=== PATIENT | male | born 1990 | race Caucasian/White ===

== ENCOUNTER 2018-06-03 11:00 | Emergency (ER) | payer SELFPAY ==
[~2018-06-03] VITALS: Ht 182.9 cm; Wt 70.0 kg
[~2018-06-03 11:00] MED LIST: NO HOME MEDS; RANI-366 PO
[2018-06-03 11:29] VITALS: BP 120/73
[2018-06-03 12:00] LABS: BASOPHILS % (AUTO) 0.7 % (0-1); EOSINOPHILS # (AUTO) 0.1 X10'3 (0-0.9); EOSINOPHILS % (AUTO) 1.1 % (0-6); HEMATOCRIT 47.2 % (42.0-52.0); HEMOGLOBIN 16.1 g/dl (14.0-17.9); LYMPHOCYTES # (AUTO) 2.6 X10'3 (1.1-4.8); LYMPHOCYTES % (AUTO) 38.7 % (21-51); MEAN CORPUSCULAR HEMOGLOBIN 31.9 PG (27.0-31.0); MEAN CORPUSCULAR HGB CONC 34.1 % (33.0-36.5); MEAN CORPUSCULAR VOLUME 93.6 FL (78-98); MEAN PLATELET VOLUME 7.8 FL (7.4-10.4); MONOCYTES # (AUTO) 1.1 X10'3 (0-0.9); MONOCYTES % (AUTO) 16.9 % (2-12); NEUTROPHILS # (AUTO) 2.9 X10'3 (1.8-7.7); NEUTROPHILS % (AUTO) 42.6 % (42-75); PLATELET COUNT 260 X10'3 (140-440); RED BLOOD COUNT 5.04 X10'6 (4.70-6.10); WHITE BLOOD COUNT 6.7 X10'3 (4.5-11.0)
[2018-06-03 12:12] LABS: ALANINE AMINOTRANSFERASE 22 U/L (12-78); ALBUMIN 4.1 G/DL (3.4-5.0); ALBUMIN/GLOBULIN RATIO 1.1 (1.1-1.5); ALKALINE PHOSPHATASE 103 IU/L (46-116); ANION GAP 9 (8-16); ASPARTATE AMINO TRANSFERASE 18 U/L (10-37); BILIRUBIN,TOTAL 1.1 MG/DL (0.1-1.0); BLOOD UREA NITROGEN 18 MG/DL (7-18); BUN/CREATININE RATIO 21.7 (5.4-32.0); CALCIUM 8.7 MG/DL (8.5-10.1); CHLORIDE 100 MMOL/L (99-107); CREATININE 0.83 MG/DL (0.60-1.10); GLUCOSE 92 MG/DL (70-104); LIPASE 71 U/L (73-393); POTASSIUM 3.9 MMOL/L (3.5-5.1); SODIUM 139 MMOL/L (135-145); TOTAL CARBON DIOXIDE 30.4 MMOL/L (24-32); TOTAL PROTEIN 7.7 G/DL (6.4-8.2); eGFR > 90 ML/MIN
== END 2018-06-03 13:30 | disposition home or self-care (01) ==
LOC: ER 11:01
DX: R11.2 Nausea with vomiting, unspecified (principal); R19.7 Diarrhea, unspecified; R42 Dizziness and giddiness; R53.83 Other fatigue; G89.29 Other chronic pain; F17.200 Nicotine dependence, unspecified, uncomplicated; F12.90 Cannabis use, unspecified, uncomplicated; Z88.0 Allergy status to penicillin; Z79.899 Other long term (current) drug therapy
CPT/HCPCS: 36415; 80053; 83690; 85025; 99283

== ENCOUNTER 2019-06-15 14:44 | Emergency (ER) | payer MEDICAID, OTHER ==
[~2019-06-15] VITALS: Ht 185.4 cm; Wt 80.0 kg
[2019-06-15 15:11] VITALS: BP 121/81
[2019-06-15] MEDS ORDERED: ONDA4TAB6 PO (15:14)
== END 2019-06-15 15:20 | disposition home or self-care (01) ==
LOC: ER 14:47
DX: R11.2 Nausea with vomiting, unspecified (principal); R51 Headache; R19.7 Diarrhea, unspecified; G89.29 Other chronic pain; F17.200 Nicotine dependence, unspecified, uncomplicated; F10.99 Alcohol use, unspecified with unspecified alcohol-induced disorder; F12.90 Cannabis use, unspecified, uncomplicated; Z88.0 Allergy status to penicillin; Z79.899 Other long term (current) drug therapy; Y90.9 Presence of alcohol in blood, level not specified
CPT/HCPCS: 99283

== ENCOUNTER 2025-02-03 09:19 | Emergency (ER) | payer MEDICAID, OTHER ==
[~2025-02-03] VITALS: Ht 182.9 cm; Wt 76.2 kg
[~2025-02-03 09:19] MED LIST changes: +ONDA4TAB6 PO
[2025-02-03 09:22] VITALS: TEMP 98.4
[2025-02-03 10:05] VITALS: BP 124/77; PULSE 67; RESP 15; O2SAT 98
[2025-02-03] MEDS: triamcinolone acetonide 40mg/ml inj IM ONE (10:23)
--- NOTE | 2025-02-03 10:23 | Physician Documentation ---
History of Present Illness ~ Chief Complaint: Allergic Reaction Stated Complaint: RASH Time Seen by MD: 10:11 Primary Medical Doctor: none HPI 34-year-old male presents with a complaint of an allergic reaction of an unknown source. He states that it initially there his eyes began swell 2 days ago and were itchy. Then developed increased tissue swelling along with developing a rash on both sides of his cheeks Denies any shortness of breath or throat swelling symptoms Day of Onset: Feb 03, 2025 Medication Reconciliation Allergies: Coded Allergies: Penicillins (Unverified Allergy, Severe, anaphylaxis, 02/03/25) Scheduled Ondansetron Hcl (Zofran), 1 TAB PO Q8H Ranitidine Hcl (Zantac), 150 MG PO DAILY Miscellaneous Medications Home Med List (No Home Medications), (Reported) Past Medical History Past Medical History: Angina, Chronic Back Pain Past Surgical History: no surgical history Alcohol Use: Occasionally Drug Use: marijuana Lives with: Family, Other Lives In: Home Occupation: employed Review of Systems All Other Systems at this time: Reviewed and Negative ROS As stated above in the HPI, otherwise all systems are reviewed and negative. Physical Exam Vital Signs: Temperature: 98.4, Source: Temporal, Heart Rate: 67, Respiratory Rate: 15, BP: 124/77, Pulse Oximetry: 98, Weight: 76.200 Oxygen Flow Rate: 0 Physical Exam General: Alert, no apparent distress. HEENT: PERRL, EOMI, no injection, moist mucous membranes. BL eye lid -swelling, rash both cheeks Respiratory: Lungs clear, no respiratory distress. Progress Results/Orders Results/Orders Completed Orders - LIOR DUNNE NP Triamcinolone Acet 40mg/Ml Inj (Kenalog- (02/03/25 10:20) Vital Signs 02/03/25 02/03/25 09:22 10:05 Temp 98.4 Pulse 74 67 Resp 18 15 B/P (MAP) 131/88 124/77 (93) Pulse Ox 99 98 O2 Flow Rate 0 Medical Decision Making Findings Treating this patient for an allergic reaction to an unknown substance. There was no acute distress treated him with Kenalog in the ED and told him to use Benadryl for itching at home. Differential Dx:Considerations: Include: Anaphylaxis, Angioedema, Bronchospasm, Contact dermatitis, Drug reaction, Hypotension, Latex allergy, Renal failure, Respiratory failure, Shock, Urticaria, Other Departure Disposition: 01 HOME / SELF CARE / HOMELESS Impression: Primary Impression: Acute allergic reaction Condition: Improved Discharge Instructions: Hives, [id number] Referrals: NO PRIMARY CARE PROVIDER (PCP) Education Educated: Patient Educated regarding: diagnosis Signature Scribe Signature: vgf Attestation: Scribed for Lior Dunne [employer] Operator by Lior Salazar NP . 02/03/25 10:28 LIOR DUNNE NP Feb 03, 2025 10:23
== END 2025-02-03 10:37 | disposition home or self-care (01) ==
LOC: ER 09:20
DX: T78.40XA Allergy, unspecified, initial encounter (principal); F12.90 Cannabis use, unspecified, uncomplicated; Z88.0 Allergy status to penicillin; Z88.8 Allergy status to other drugs, medicaments and biological substances; X58.XXXA Exposure to other specified factors, initial encounter
CPT/HCPCS: 96372; 99283; J3301